=== PATIENT | female | born 1995 | race Caucasian/White ===

== ENCOUNTER 2018-05-01 17:32 | Inpatient (IN) | payer OTHER ==
--- NOTE | 2018-05-01 18:41 | ED ---
Psychiatric Complaint - HPI Summary HPI Summary: 22 y/o female BIBA to the ED c/o depression. Pt states that she's "not succeeding at anything". She "feels like things are messed up". She c/o that "everything hurts". She is having a hard time function. Pt has had prior psychosis episodes. Pt is a student at [employer]. Pt cared for at [facility] prior to being sent to the ED. Started Cymbalta 2 weeks ago. - History Of Current Complaint Chief Complaint: EDPsychosocial Hx Obtained From: Patient Onset/Duration: Still Present Timing: Constant Character: Depressed, Anxious Aggravating Factor(s): Nothing Alleviating Factor(s): Nothing Associated Signs And Symptoms: Negative: Hallucinating Related History: Positive For: Prior Psychiatric Issues - Allergies/Home Medications Home Medications: Home Medications Escitalopram (NF) [Lexapro 10 mg (NF)] 10 mg PO DAILY 05/01/18 [History Confirmed 05/01/18] PMH/Surg Hx/FS Hx/Imm Hx Previously Healthy: No Cardiovascular History: Denies: Hx Congestive Heart Failure Respiratory History: Denies: Hx Chronic Obstructive Pulmonary Disease (COPD) - Immunization History Immunizations Up to Date: Unable to Obtain/Confirm Infectious Disease History: Unable to Obtain/Confirm Infectious Disease History: Denies: Traveled Outside the [place] in Last 30 Days - Family History Known Family History: Positive: Unknown - Social History Occupation: Student Alcohol Use: Occasionally Alcohol Amount: Per mother pt drinks wine at night Substance Use Type: Reports: None Smoking Status (MU): Unknown if Ever Smoked Review of Systems Constitutional: Negative Eyes: Negative ENT: Negative Cardiovascular: Negative Respiratory: Negative Gastrointestinal: Negative Genitourinary: Negative Musculoskeletal: Negative Skin: Negative Neurological: Negative Positive: Depressed All Other Systems Reviewed And Are Negative: No Physical Exam - Summary Physical Exam Summary: Appearance: Alert, conversive, nontoxic appearing Skin: Warm, dry, no mottling, no rashes, no contusions HEENT: EOMI, PERRL, moist mucous membranes Neck: No masses on the neck, supple Respiratory: Clear to auscultation, breath sounds present, no rales, no rhonchi , no wheezes Cardiovascular: RRR, pulses are symmetrical in both lower and upper extremities Abdomen: Soft, non-tender Bowel Sounds: Present Musculoskeletal: No CVA tenderness, no obvious deformity, moving all extremities in a grossly normal manner Neurological: A&Ox3, CN II-XII Intact, moving all extremities symmetrically Psychiatric: Completely unengaged, poor eye contact. The patient keeps repeating herself, not giving any history. Poor insight, poor judgment. Triage Information Reviewed: Yes Vital Signs On Initial Exam: Initial Vitals Temp Pulse Resp BP Pulse Ox 98 F 85 18 121/88 100 05/01/18 17:48 05/01/18 17:48 05/01/18 17:48 05/01/18 17:48 05/01/18 17:48 Vital Signs Reviewed: Yes Diagnostics - Vital Signs Vital Signs Temp Pulse Resp BP Pulse Ox 05/01/18 17:48 98 F 85 18 121/88 100 - Laboratory Result Diagrams: 05/01/18 20:35 05/01/18 20:35 Lab Statement: Any lab studies that have been ordered have been reviewed, and results considered in the medical decision making process. - Additional Comments Diagnostic Additional Comments: EKG - SR @ 74 BPM. Prolonged QRSD. Normal QTc. Inverted T waves in V1, V2. Nonspecific ST-Twave changes. Course/Dx - Course Assessment/Plan: Spoke with psych. I recommended the pt be evaluated. EKG - SR @ 74 BPM. Prolonged QRSD. Normal QTc. Inverted T waves in V1, V2. Nonspecific ST -Twave changes. Pt will be signed out to Dr. Fish pending MHE and dispo. - Differential Dx/Clinical Impression Provider Diagnosis: Depression, Mood disorder Discharge - Sign-Out/Discharge Documenting (check all that apply): Sign-Out Patient Signing out patient TO: Suleman Fish Receiving patient FROM: Yessi Gibbs - Discharge Plan Condition: Guarded Disposition: PSYCHIATRIC FACILITY[place] [place] - Billing Disposition and Condition Condition: GUARDED Disposition: Psychiatric Facility [facility] - Attestation Statements Document Initiated by Scribe: Yes Documenting Scribe: Roberto Diehl Provider For Whom Scribe is Documenting (Include Credential): Yessi Gibbs MD Scribe Attestation: Roberto Montana, scribed for Yessi Gibbs MD on 05/03/18 at 1137. Scribe Documentation Reviewed: Yes Provider Attestation: The documentation as recorded by the Roberto cheney accurately reflects the service I personally performed and the decisions made by me, Yessi Gibbs MD
[2018-05-01 20:41] LABS: ABS Basophils 0 10^3/ul (0-0.2); ABS Eosinophils 0 10^3/ul (0-0.6); ABS Lymphocytes 1.3 10^3/ul (1.0-4.8); ABS Monocytes 0.7 10^3/ul (0-0.8); ABS Neutrophils 3.5 10^3/ul (1.5-7.7); ABS Nucleated RBC 0 10^3/ul; Eosinophil % 0.1 % (0-6); Hematocrit 39 % (35-47); Hemoglobin 13.2 g/dl (12.0-16.0); Lymphocyte % 23.8 % (25-47); Mean Corpuscular HGB Conc 34 g/dl (31-36); Mean Corpuscular Hemoglobin 32 pg (27-31); Mean Corpuscular Volume 92 fL (80-97); Mean Platelet Volume 7.7 um3 (7.4-10.4); Nucleated Red Blood Cells % 0.1; Platelet Count 249 10^3/ul (150-450); Red Blood Count 4.19 10^6/ul (4.00-5.40); Red Cell Distribution Width 13 % (10.5-15); White Blood Count 5.6 10^3/ul (3.5-10.8)
[2018-05-01 20:57] LABS: EGFR Non-African American 163.3 (>60)
[2018-05-01 21:36] LABS: Urine Appearance Clear; Urine Blood Negative (Negative); Urine Color Yellow; Urine Ketones 1+ (Negative); Urine Protein Negative (Negative); Urine Red Blood Cell 1+(3-5/hpf) (Absent); Urine Specific Gravity 1.005 (1.010-1.030); Urine Urobilinogen Negative (Negative); Urine White Blood Cell Trace(0-5/hpf) (Absent)
[2018-05-02] MEDS ORDERED: Al Hydrox/Mg Hydrox/Simet LIQ* 30 ML UDC PO PRN (00:17)
--- NOTE | 2018-05-02 00:22 | ED ---
Progress - Consult/PCP Time Called: 22:30 Course/Dx - Diagnoses Provider Diagnoses: Depression, Mood disorder Discharge - Sign-Out/Discharge Documenting (check all that apply): Patient Departure Signing out patient TO: Suleman Fish Receiving patient FROM: Yessi Gibbs - Discharge Plan Condition: Guarded Disposition: PSYCHIATRIC FACILITY[place] [place] Referrals: No Primary Care Phys,NOPCP [Primary Care Provider] - - Billing Disposition and Condition Condition: GUARDED Disposition: Psychiatric Facility [facility] [place]
[2018-05-02] MEDS ORDERED: LORazepam TAB(*) 1 MG PO ONE (01:00)
[2018-05-02] MEDS: Vitamin THERAPEUTIC TAB PO SCH (10:02)
--- NOTE | 2018-05-02 12:56 | HP ---
H&P (Free Text) History and Physical: JUSTIFICATION FOR ADMISSION: Patient presented to emergency room with disorganized thinking and behavior, anxious, unable to care for self. He requires inpatient psychiatric admission in order to provide treatment and stabilization as she is a danger to herself. CHIEF COMPLAINT: "I have messed up things for others HISTORY OF THE PRESENT ILLNESS: Patient is a 22 y/o female, single, living in [place], studying at [employer], with history of unspecified Mood symptoms and self-injurious behavior. Patient was admitted to inpatient unit for worsening of her disorganized behavior and thinking impairing her level of functioning. Patient compliance is unknown with her Lexapro. Patient reportedly has been having similar symptoms started over this summer. Patient first episode was in [place] when she was working at [employer]. Family intervened and brought patient home and symptoms resolved. Patient was at her baseline for about 2 and half week and then had another relapse in symptoms. Patient after second episode saw a Psychiatrist Dr. Donnie Dennis in [place], [place] and was started on Lexapro 10 mg PO Q daily. Patient was doing fine and reportedly moved back to [place] to start at [employer]. Patient reportedly had no manic symptoms. Patient reports no delusion of paranoia or persecution but likely delusion of guilt. Patient denied any suicidal or homicidal ideation on the unit. Patient continued to exhibit behavior that is disorganized, anxious and is unable to care for self. PAST PSYCHIATRIC HISTORY: Patient has history of no history of inpatient psychiatric hospitalization. Patient has history of no outpatient psychiatric treatment until recently as in [facility]. Patients medications are Lexapro 10mg once a day. Patient has history of self-injurious (cutting) behavior during high school. Patient has history of no homicidal threats, no intent or attempt. Patient has history of no aggressive and agitated behavior when decompensates. No access to firearm reported. SUBSTANCE ABUSE HISTORY: Patient uses of alcohol and substance abuse are unclear. Urine toxicology was negative for routine screening. Patients mother states that she used alcohol at a wedding this summer but unsure that coincided with her symptoms. Patient also once presented [place] [facility] after alcohol intoxication in 2016. When asked about other substances patient was unable to provide much information but did report using marijuana once during last week unable to provide details on amount , frequency, day and date. Patient has been in no inpatient and outpatient treatment for drugs. PAST MEDICAL HISTORY: No active medical problems ALLERGIES: NKA FAMILY PSYCHIATRIC HISTORY: Patient denied any history psychiatric illness, suicide or substance abuse in her family. FAMILY/PSYCHOSOCIAL HISTORY: Patient currently lives in [place] and is enrolled at [employer] for last 2 years. Patient is single. Patients is originally from [facility]. Patient has 3 older sibling sisters. Patient was raised by her parents. As per mother patient might be struggling her sexuality but patient was unable to cooperate with details. Patient support system includes family. REVIEW OF SYSTEMS: Patients review of symptoms was negative for any physical complaint. Patient vital signs are stable. Patients ED physical exam was reviewed which is grossly normal with no active medical problem. Physical Exam Summary: Appearance: Alert, conversive, nontoxic appearing Skin: Warm, dry, no mottling, no rashes, no contusions HEENT: EOMI, PERRL, moist mucous membranes Neck: No masses on the neck, supple Respiratory: Clear to auscultation, breath sounds present, no rales, no rhonchi , no wheezes Cardiovascular: RRR, pulses are symmetrical in both lower and upper extremities Abdomen: Soft, non-tender Bowel Sounds: Present Musculoskeletal: No CVA tenderness, no obvious deformity, moving all extremities in a grossly normal manner Neurological: A&Ox3, CN II-XII Intact, moving all extremities symmetrically MENTAL STATUS EXAMINATION: Appearance: dressed in hospital gown, making intermittent eye contact, poor historian, appear internally preoccupied in her thoughts and is in distress, confused, fair hygeine Behavior: psychotically related Gait: normal Abnormal motor activity: normal Speech: poverty in speech, underproductive, perseverance Mood: I am messed up Affect: blunt, anxious Thought process: goal directed to disorganized Thought Content: Suicidal/Homicidal ideation: denied Delusions: of guilt Obsessions: none Phobia: none Perceptual disturbance: appear to be internally preoccupied, but denies Attention: limited Orientation: intact with place and person Concentration: impaired Memory: poor Insight: limited Judgment: poor Impulse control: grossly intact IMPRESSION: Patient with history of self-injurious behavior in high school and unspecified mood symptoms starting this summer. Patient currently admitted due to worsening of disorganized behavior and thinking causing inability to think and function. Patient has history of alcohol and cannabis use but unclear about details. Patient is a danger to self if discharged hence will be stabilized on inpatient unit with medication adjustments and therapy. 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 Patient is full code. Patient is on involuntary admission status Integrate patient into the milieu Individual and group psychotherapy MMPI and psychological consult with Dr. Jose. Social work consult for therapy and discharge planning Will hold family meeting with family to increase Data base. Patient was educated about her medications, risk, benefits and side effects and was started on: Abilify 5 mg PO QAM to help with psychosis. Klonopin 0.5 mg PO BID to help with anxiety and racing thoughts. Patient also on Hydroxyzine 50 mg PO Q6HRS PRN anxiety/agitation Will continue to monitor and f/u for improvement and side effects. Emilee Orozco MD Attending Psychiatrist
[2018-05-02] MEDS: clonazePAM TAB(*) 0.5 MG PO SCH ×2 (13:02→20:32)
[2018-05-02] MEDS: ARIPiprazole TAB* 5 MG PO SCH (13:02)
[2018-05-03] MEDS: Vitamin THERAPEUTIC TAB PO SCH (09:12)
[2018-05-03] MEDS: ARIPiprazole TAB* 5 MG PO SCH (09:12)
[2018-05-03] MEDS: clonazePAM TAB(*) 0.5 MG PO SCH ×2 (09:12→21:02)
--- NOTE | 2018-05-03 11:41 | PN ---
[facility]: Group Therapy Note - Service Type Service Type: 14665 Group Psychotherapy - Cognitive Behavioral Group Therapy ( CBT):Patient attended CBT programming this morning and presented with flat affect that did not vary with discussion. Although responsive to direct prompts to respond to questions, patient did not engage in spontaneous conversation.
--- NOTE | 2018-05-03 11:52 | PN ---
Subjective - Subjective Date of Service: 05/03/18 Service Type: 91268 Hosp care 15 min low complexity Subjective: Patient was seen by self, discussed with treatment team, chart was reviewed. Patient has been compliant with her medications with support. Patient's mother has been very involved and supportive during this hospitalization. Patient reported no side effects from medications. Patient reports delusion of guilt and racing worries, impairing her concentration, less disorganized in her thinking and behavior. Patient sleeping has been better and is also resting during the day. Patient eating has been fair. Patient has been more cooperative with staff and yesterday was paranoid about taking medications but was supported by staff and her mother. Patient behavior has been in control and taking care of her hygiene better. Patient mood was less anxious compared to yesterday. Patient has been reporting no suicidal or homicidal ideation. Patient has intermittent perceptual disturbance of auditory hallucination that she reported to staff. Objective - Appearance Appearance: Thin Framed Dysmorphic Features: No Hygiene: Normal Grooming: Fairly Well Kept - Behavior Psychomotor Activities: Normal Exhibits Abnormal Movement: No - Attitude and Relatedness Attitude and Relatedness: Psychotically Related Eye Contact: Poor - Speech Quality: Unpressured Latencies: Long Quantity: Terse - Mood Patient's Decription of Mood: "i dont know" - Affect Observed Affect: Tense Affect Consistent with: Dysphoria - Thought Process Patient's Thought Process: Disorganized Thought Content: No Passive Wish, No Suicidal Planning, No Homicidal Ideation, No Paranoid Ideation - delusion of guilt - Sensorium Experiencing Hallucinations: No, Sensorium is Clear Type of Hallucinations: Visual: No, Auditory: No - at time of evauation, Command : No - Level of Consciousness Level of Consciousness: Alert Orientation: Yes Intact, Yes Orientated to Time, Yes Orientated to Place, Yes Orientated to Person - Impulse Control Impulse Control: Intact - Insight and Judgement Insight and Judgement: Poor - Medication Management Medication Management Adherence: Yes - with support Assessment - Assessment Merits Inpatient Hospitalization: For Immediate Safety, For Stabilization, For Discharge Planning Inpatient DSM-V Dx: F29 Clinical Impression: Patient with history of self-injurious behavior in high school and unspecified mood symptoms starting this summer. Patient currently admitted due to worsening of disorganized behavior and thinking causing inability to think and function. Patient has history of alcohol and cannabis use but unclear about details. Patient is a danger to self if discharged hence will be stabilized on inpatient unit with medication adjustments and therapy. Plan - Plan Treatment Plan: Name: DENIS FOX Birthdate: 1995 [id number] - Patient continues to be hospitalized due to recent disorganized behavior and thinking and unable to care for self. - Patient's medications were adjusted after informed consent with increment in Abilify to 10 mg PO QAM and continue with Klonopin 0.5 mg BID. - Patient will be monitored for improvement and side effects. Risk and benefits were discussed. - Patient was encouraged to continue his participation in the milieu, group and individual therapy. Medications: Current Medications Acetaminophen (Tylenol Tab*) 650 mg PO Q4H PRN PRN Reason: PAIN or TEMP > 101 F Al Hydrox/Mg Hydrox/Simethicone (Maalox Plus*) 30 ml PO Q4H PRN PRN Reason: INDIGESTION Aripiprazole (Abilify Tab*) 5 mg PO DAILY [facility] Last Admin: 05/03/18 09:12 Dose: 5 mg Clonazepam (Klonopin Tab(*)) 0.5 mg PO BID [facility] Last Admin: 05/03/18 09:12 Dose: 0.5 mg Hydroxyzine HCl (Atarax Tab*) 50 mg PO Q6H PRN PRN Reason: ANXIETY Multivitamins (Theragran Tab*) 1 tab PO DAILY [facility] Last Admin: 05/03/18 09:12 Dose: 1 tab
[2018-05-04] MEDS: clonazePAM TAB(*) 0.5 MG PO SCH ×2 (08:07→20:33)
[2018-05-04] MEDS: Vitamin THERAPEUTIC TAB PO SCH (08:07)
[2018-05-04] MEDS ORDERED: ARIPiprazole TAB* 5 MG PO SCH (09:00)
[2018-05-04] MEDS: Acetaminophen TAB* 325 MG PO PRN (11:01)
--- NOTE | 2018-05-04 12:20 | PN ---
Subjective - Subjective Date of Service: 05/04/18 Service Type: 00832 Hosp care 25 min moderate complexity Subjective: Patient was seen by self, discussed with treatment team, chart was reviewed. Patient has been compliant with her medications with support. Patient's mother has been very involved and supportive during this hospitalization and met her today for treatment and discharge planning as per patient's consent. Patient reported no side effects from medications other than feeling tired and sleepy during the day. Patient has some improvement in delusion of guilt and racing worries, some improvement in her concentration, less disorganized in her thinking and behavior. Patient sleeping has been ok at night and is also resting during the day. Patient eating has been fair. Patient has been more cooperative and following instructions with staff. Patient behavior has been in control and taking care of her hygiene well. Patient reported start of her menstrual period and requested supplies to nursing staff. Patient mood was less anxious and has been reporting no suicidal or homicidal ideation. Patient has intermittent period internal stimuli that she responds to. Objective - Appearance Appearance: Thin Framed Dysmorphic Features: No Hygiene: Normal Grooming: Fairly Well Kept - Behavior Psychomotor Activities: Abnormal-Decreased Exhibits Abnormal Movement: No - Attitude and Relatedness Attitude and Relatedness: Withdrawn Eye Contact: Fair - Speech Quality: Unpressured Latencies: Long Quantity: Terse - Mood Patient's Decription of Mood: "I am tired" - Affect Observed Affect: Tense Affect Consistent with: Dysphoria - Thought Process Patient's Thought Process: Goal Directed, Disorganized - less Thought Content: No Passive Wish, No Suicidal Planning, No Homicidal Ideation, No Paranoid Ideation - Sensorium Experiencing Hallucinations: No, Sensorium is Clear Type of Hallucinations: Visual: No, Auditory: Yes, Command: No - Level of Consciousness Level of Consciousness: Alert Orientation: Yes Intact, Yes Orientated to Time, Yes Orientated to Place, Yes Orientated to Person - Impulse Control Impulse Control: Intact - Group Participation Particating in Group Activities: Yes - Medication Management Medication Management Adherence: Yes Assessment - Assessment Merits Inpatient Hospitalization: For Immediate Safety, For Stabilization, For Discharge Planning Inpatient DSM-V Dx: F29 Clinical Impression: Patient with history of self-injurious behavior in high school and unspecified mood symptoms starting this summer. Patient currently admitted due to worsening of disorganized behavior and thinking causing inability to think and function. Patient has history of alcohol and cannabis use but unclear about details. Patient is a danger to self if discharged hence will be stabilized on inpatient unit with medication adjustments and therapy. Plan - Plan Treatment Plan: Name: DENIS FOX Birthdate: 1995 [id number] - Patient continues to be hospitalized due to recent disorganized behavior and thinking and unable to care for self. - Patient's medications were adjusted after informed consent with change of Abilify to 10 mg PO QHS and reduce Klonopin to 0.5 mg QHS. - Patient will be monitored for improvement and side effects. Risk and benefits were discussed. - Patient was encouraged to continue his participation in the milieu, group and individual therapy. Medications: Current Medications Acetaminophen (Tylenol Tab*) 650 mg PO Q4H PRN PRN Reason: PAIN or TEMP > 101 F Last Admin: 05/04/18 11:01 Dose: 650 mg Al Hydrox/Mg Hydrox/Simethicone (Maalox Plus*) 30 ml PO Q4H PRN PRN Reason: INDIGESTION Aripiprazole (Abilify Tab*) 10 mg PO DAILY [facility] Last Admin: 05/04/18 08:06 Dose: 10 mg Clonazepam (Klonopin Tab(*)) 0.5 mg PO BID [facility] Last Admin: 05/04/18 08:07 Dose: 0.5 mg Hydroxyzine HCl (Atarax Tab*) 50 mg PO Q6H PRN PRN Reason: ANXIETY Multivitamins (Theragran Tab*) 1 tab PO DAILY [facility] Last Admin: 05/04/18 08:07 Dose: 1 tab
--- NOTE | 2018-05-04 13:11 | PN ---
MHU: Group Therapy Note - Service Type Service Type: [id number] Group Psychotherapy - Cognitive Behavioral Group Therapy ( CBT):Patient attended CBT programming this morning and presented with flat affect that did not vary with discussion. Although responsive to direct prompts to respond to questions, patient did not engage in spontaneous conversation.
[2018-05-04] MEDS ORDERED: Fluconazole 100 MG TAB* TAB PO ONE (15:06)
[2018-05-04] MEDS: ARIPiprazole TAB* 5 MG PO SCH (20:33)
[2018-05-05] MEDS: Vitamin THERAPEUTIC TAB PO SCH (09:00)
[2018-05-05] MEDS: hydrOXYzine HCL TAB* 50 MG PO PRN (10:44)
[2018-05-05] MEDS ORDERED: Calcium Carbonate CHEW TAB* 500 MG (TUMS) PO PRN (13:21)
--- NOTE | 2018-05-05 14:01 | PN ---
Subjective - Subjective Date of Service: 05/05/18 Service Type: [id number] Hosp care 15 min low complexity Subjective: Denis is seen in weekend coverage for Dr. Orozco. She remains a little "scattered" but she's feeling better and no longer displaying catatonic behaviors. On exam she has mild speech latency and blunting of affect. Her sister and mother are present and feel encouraged by her progress, although they do not feel she is back to baseline. Denis complains of mild indigestion and requests Tums. She denies SI or HI. Objective - Appearance Appearance: Thin Framed Dysmorphic Features: No Hygiene: Normal Grooming: Well Kept - Behavior Psychomotor Activities: Abnormal-Decreased Exhibits Abnormal Movement: No - Attitude and Relatedness Attitude and Relatedness: Guarded Eye Contact: Fair - Speech Quality: Unpressured Latencies: Long Quantity: Terse - Mood Patient's Decription of Mood: "Okay" - Affect Observed Affect: Unvariable Affect Consistent with: Euthymia - Thought Process Patient's Thought Process: Impoverished Thought Content: Yes Paranoid Ideation, No Passive Wish, No Suicidal Planning, No Homicidal Ideation - Sensorium Experiencing Hallucinations: No, Sensorium is Clear Type of Hallucinations: Visual: No, Auditory: No, Command: No - Level of Consciousness Level of Consciousness: Alert Orientation: Yes Intact, Yes Orientated to Time, Yes Orientated to Place, Yes Orientated to Person - Impulse Control Impulse Control: Poor - Insight and Judgement Insight and Judgement: Impaired - Group Participation Particating in Group Activities: Yes - Medication Management Medication Management Adherence: Yes Assessment - Assessment Merits Inpatient Hospitalization: For Immediate Safety, For Stabilization Inpatient DSM-V Dx: F29 Clinical Impression: 22 y.o. single, white [employer] student with a recent history of episodic catatonic behavior arrives with evidence of overt psychosis and inability to care for herself or receive treatment in a less restrictive setting Plan - Plan Treatment Plan: Name: DENIS FOX Birthdate: 1995 [id number] The patient has been started on trials of aripiprazole and clonazepam. She is tolerating these well and appears to be making meaningful progress. She remains symptomatic, however, and would benefit from further inpatient-level treatment to consolidate gains and ensure safety. Continued Medication Management: Start Medication Medications: Current Medications Acetaminophen (Tylenol Tab*) 650 mg PO Q4H PRN PRN Reason: PAIN or TEMP > 101 F Last Admin: 05/04/18 11:01 Dose: 650 mg Al Hydrox/Mg Hydrox/Simethicone (Maalox Plus*) 30 ml PO Q4H PRN PRN Reason: INDIGESTION Aripiprazole (Abilify Tab*) 10 mg PO BEDTIME [facility] Last Admin: 05/04/18 20:33 Dose: 10 mg Calcium Carbonate (Tums*) 500 mg PO Q4H PRN PRN Reason: INDIGESTION Clonazepam (Klonopin Tab(*)) 0.5 mg PO BEDTIME [facility] Last Admin: 05/04/18 20:33 Dose: 0.5 mg Hydroxyzine HCl (Atarax Tab*) 50 mg PO Q6H PRN PRN Reason: ANXIETY Last Admin: 05/05/18 10:44 Dose: 50 mg Multivitamins (Theragran Tab*) 1 tab PO DAILY [facility] Last Admin: 05/05/18 09:00 Dose: 1 tab - Discharge Plan Discharge Plan: Inpatient Hospitalization Lab Results - Lab Results Lab Results: 05/03/18 05/03/18 08:10 08:10 Hemoglobin A1c 4.6 Triglycerides 72 Cholesterol 153 LDL Cholesterol 77 HDL Cholesterol 61.7
[2018-05-05] MEDS: clonazePAM TAB(*) 0.5 MG PO SCH (20:18)
[2018-05-05] MEDS: ARIPiprazole TAB* 5 MG PO SCH (20:19)
[2018-05-06] MEDS: Vitamin THERAPEUTIC TAB PO SCH (09:02)
[2018-05-06] MEDS: Acetaminophen TAB* 325 MG PO PRN (13:52)
[2018-05-06] MEDS: hydrOXYzine HCL TAB* 50 MG PO PRN (13:52)
[2018-05-06] MEDS ORDERED: WASH INTRANASAL SCH (15:00)
[2018-05-06] MEDS: clonazePAM TAB(*) 0.5 MG PO SCH ×2 (15:52→20:24)
[2018-05-06] MEDS: ARIPiprazole TAB* 5 MG PO SCH (20:23)
[2018-05-07] MEDS: clonazePAM TAB(*) 0.5 MG PO SCH (09:02)
[2018-05-07] MEDS: Vitamin THERAPEUTIC TAB PO SCH (09:03)
--- NOTE | 2018-05-07 12:37 | PN ---
Subjective - Subjective Date of Service: 05/07/18 Service Type: 00521 Hosp care 15 min low complexity Subjective: Patient was seen by self, discussed with treatment team, chart was reviewed. Patient has been compliant with her medications with support. Patient's mother has been very involved and supportive during this hospitalization and met her today also for treatment and discharge planning as per patient's consent. Patient reportedly having some feelings of restlessness and anxiety with increase in heart rate. Patient report being able to organize her thought better , less disorganized in her behavior but continues to be resistant to express her struggles, emotions and thinking freely. Patient reports that she has was feeling depressed and anxious couple of days before this episode. But also report that she went to see a psychiatrist 2 weeks before this hospitalization that prescribed Lexapro to help with depression and anxiety. Patient keeping her sexual orientation of being bisexual to her self during high school years and did explore it during college years. Patient is currently not in any relationship. Patient did report it to her mother and find her to be supportive. Patient Patient feeling tired and sleepy during the day. Patient has some improvement in delusion of guilt and racing worries, some improvement in her concentration, less disorganized in her thinking and behavior. Patient reported no perceptual disturbance at this time but was confused if she had experienced any of those symptoms during this hospitalization as she was unable to remember. Patient sleeping has been ok at night. Patient eating has been fair. Patient has been more cooperative and following instructions with staff and went out on a staff pass without difficulty. Patient behavior has been in control and taking care of her hygiene well. Patient reported having hormonal implant for contraception and have irregular brief periods but was able to feel that her symptoms worsen before occurrence of period. Patient reported no suicidal or homicidal ideation. Patient did not appear to be responding to internal stimuli. Objective - Appearance Appearance: Thin Framed Dysmorphic Features: No Hygiene: Normal Grooming: Fairly Well Kept - Behavior Psychomotor Activities: Abnormal-Decreased Exhibits Abnormal Movement: No - Attitude and Relatedness Attitude and Relatedness: Superficially Cooperative Eye Contact: Fair - Speech Quality: Unpressured Latencies: Long Quantity: Terse - Mood Patient's Decription of Mood: "Anxious" - Affect Observed Affect: Tense Affect Consistent with: Dysphoria - Thought Process Patient's Thought Process: Goal Directed Thought Content: Yes Paranoid Ideation, No Passive Wish, No Suicidal Planning, No Homicidal Ideation - Sensorium Experiencing Hallucinations: No, Sensorium is Clear Type of Hallucinations: Visual: No, Auditory: No, Command: No - Level of Consciousness Level of Consciousness: Alert Orientation: Yes Intact, Yes Orientated to Time, Yes Orientated to Place, Yes Orientated to Person - Impulse Control Impulse Control: Intact - Insight and Judgement Insight and Judgement: Fair - Group Participation Particating in Group Activities: Yes - Medication Management Medication Management Adherence: Yes Assessment - Assessment Merits Inpatient Hospitalization: For Immediate Safety, For Stabilization, For Discharge Planning Inpatient DSM-V Dx: F29 Clinical Impression: Patient with history of self-injurious behavior in high school and unspecified mood symptoms starting this summer. Patient currently admitted due to worsening of disorganized behavior and thinking causing inability to think and function. Patient has history of alcohol and cannabis use but unclear about details. Patient is a danger to self if discharged hence will be stabilized on inpatient unit with medication adjustments and therapy. Plan - Plan Treatment Plan: Name: DENIS FOX Birthdate: 1995 [id number] - Patient continues to be hospitalized due to recent disorganized behavior and thinking and unable to care for self. - Patient's medications were adjusted due to akathisia and anxiety related symptoms after informed consent with change of Abilify to Zyprexa 5 mg at bedtime and Klonopin was reduced to 0.5 mg QHS. - Patient will be monitored for improvement and side effects. Risk and benefits were discussed. - Patient was encouraged to continue his participation in the milieu, group and individual therapy. Medications: Current Medications Acetaminophen (Tylenol Tab*) 650 mg PO Q4H PRN PRN Reason: PAIN or TEMP > 101 F Last Admin: 05/06/18 13:52 Dose: 650 mg Al Hydrox/Mg Hydrox/Simethicone (Maalox Plus*) 30 ml PO Q4H PRN PRN Reason: INDIGESTION Calcium Carbonate (Tums*) 500 mg PO Q4H PRN PRN Reason: INDIGESTION Clonazepam (Klonopin Tab(*)) 0.5 mg PO BEDTIME DESMOND Hydroxyzine HCl (Atarax Tab*) 50 mg PO Q6H PRN PRN Reason: ANXIETY Last Admin: 05/06/18 13:52 Dose: 50 mg Multivitamins (Theragran Tab*) 1 tab PO DAILY DESMOND Last Admin: 05/07/18 09:03 Dose: 1 tab Olanzapine (Zyprexa Tab*) 5 mg PO BEDTIME DESMOND Thymol/Menthol (Alkalol (Nf)) 1 dose INTRANASAL . DIRECTED DESMOND; Protocol
[2018-05-07] MEDS ORDERED: OLANzapine TAB* 5 MG PO SCH (21:00)
[2018-05-07] MEDS ORDERED: clonazePAM TAB(*) 0.5 MG PO SCH (21:00)
[2018-05-08 08:27] VITALS: BP 119/67
[2018-05-08] MEDS: Vitamin THERAPEUTIC TAB PO SCH (08:32)
--- NOTE | 2018-05-08 13:40 | DS ---
Subjective - Subjective Service Types: 11203 [facility] Day Mgmt complex over 30 min Discharge Date: 05/08/18 Subjective: JUSTIFICATION FOR ADMISSION: Patient presented to emergency room with disorganized thinking and behavior, anxious, unable to care for self. He requires inpatient psychiatric admission in order to provide treatment and stabilization as she is a danger to herself. CHIEF COMPLAINT: "I have messed up things for others HISTORY OF THE PRESENT ILLNESS: Patient is a 22 y/o female, single, living in [place], studying at [employer], with history of unspecified Mood symptoms and self-injurious behavior. Patient was admitted to inpatient unit for worsening of her disorganized behavior and thinking impairing her level of functioning. Patient compliance is unknown with her Lexapro. Patient reportedly has been having similar symptoms started over this summer. Patient first episode was in [place] when she was working at [employer]. Family intervened and brought patient home and symptoms resolved. Patient was at her baseline for about 2 and half week and then had another relapse in symptoms. Patient after second episode saw a Psychiatrist Dr. Donnie Dennis in [place], [place] and was started on Lexapro 10 mg PO Q daily. Patient was doing fine and reportedly moved back to [place] to start at [employer]. Patient reportedly had no manic symptoms. Patient reports no delusion of paranoia or persecution but likely delusion of guilt. Patient denied any suicidal or homicidal ideation on the unit. Patient continued to exhibit behavior that is disorganized, anxious and is unable to care for self. PAST PSYCHIATRIC HISTORY: Patient has history of no history of inpatient psychiatric hospitalization. Patient has history of no outpatient psychiatric treatment until recently as in [facility]. Patients medications are Lexapro 10mg once a day. Patient has history of self-injurious (cutting) behavior during high school. Patient has history of no homicidal threats, no intent or attempt. Patient has history of no aggressive and agitated behavior when decompensates. No access to firearm reported. SUBSTANCE ABUSE HISTORY: Patient uses of alcohol and substance abuse are unclear. Urine toxicology was negative for routine screening. Patients mother states that she used alcohol at a wedding this summer but unsure that coincided with her symptoms. Patient also once presented to [facility] ED after alcohol intoxication in 2016. When asked about other substances patient was unable to provide much information but did report using marijuana once during last week unable to provide details on amount , frequency, day and date. Patient has been in no inpatient and outpatient treatment for drugs. PAST MEDICAL HISTORY: No active medical problems ALLERGIES: NKA FAMILY PSYCHIATRIC HISTORY: Patient's maternal aunt has history of Bipolar Disorder, maternal cousin has severe depression. Patient's mother has depression and is currently taking Lexapro. FAMILY/PSYCHOSOCIAL HISTORY: Patient currently lives in [place] and is enrolled at [employer] for last 2 years. Patient is single. Patients is originally from [facility]. Patient has 3 older sibling sisters. Patient was raised by her parents. As per mother patient might be struggling her sexuality but patient was unable to cooperate with details. Patient support system includes family. REVIEW OF SYSTEMS: Patients review of symptoms was negative for any physical complaint. Patient vital signs are stable. Patients ED physical exam was reviewed which is grossly normal with no active medical problem. Physical Exam Summary: Appearance: Alert, conversive, nontoxic appearing Skin: Warm, dry, no mottling, no rashes, no contusions HEENT: EOMI, PERRL, moist mucous membranes Neck: No masses on the neck, supple Respiratory: Clear to auscultation, breath sounds present, no rales, no rhonchi , no wheezes Cardiovascular: RRR, pulses are symmetrical in both lower and upper extremities Abdomen: Soft, non-tender Bowel Sounds: Present Musculoskeletal: No CVA tenderness, no obvious deformity, moving all extremities in a grossly normal manner Neurological: A&Ox3, CN II-XII Intact, moving all extremities symmetrically MENTAL STATUS EXAMINATION ON ADMISSION: Appearance: dressed in hospital gown, making intermittent eye contact, poor historian, appear internally preoccupied in her thoughts and is in distress, confused, fair hygeine Behavior: psychotically related Gait: normal Abnormal motor activity: normal Speech: poverty in speech, underproductive, perseverance Mood: I am messed up Affect: blunt, anxious Thought process: goal directed to disorganized Thought Content: Suicidal/Homicidal ideation: denied Delusions: of guilt Obsessions: none Phobia: none Perceptual disturbance: appear to be internally preoccupied, but denies Attention: limited Orientation: intact with place and person Concentration: impaired Memory: poor Insight: limited Judgment: poor Impulse control: grossly intact DIAGNOSES ON ADMISSION: Psychotic Disorder unspecified Objective - Appearance Appearance: Healthy Appearing Dysmorphic Features: No Hygiene: Normal Grooming: Fairly Well Kept - Behavior Psychomotor Activities: Abnormal-Decreased - but improved Exhibits Abnormal Movement: No - Attitude and Relatedness Attitude and Relatedness: Cooperative Eye Contact: Fair - Speech Quality: Unpressured Latencies: Normal Quantity: Terse - Mood Patient's Decription of Mood: "Fine" - Affect Observed Affect: Fair - Blunt Affect Consistent with: Euthymia - mild anxiety - Thought Process Patient's Thought Process: Goal Directed Thought Content: No Passive Wish, No Suicidal Planning, No Homicidal Ideation, No Paranoid Ideation - Sensorium Experiencing Hallucinations: No, Sensorium is Clear Type of Hallucinations: Visual: No, Auditory: No, Command: No - Level of Consciousness Level of Consciousness: Alert Orientation: Yes Intact, Yes Orientated to Time, Yes Orientated to Place, Yes Orientated to Person - Impulse Control Impulse Control: Intact - Insight and Judgement Insight and Judgement: Fair - Group Participation Particating in Group Activities: Yes - Medication Management Medication Management Adherence: Yes Treatment Course & Assessment Clinical Course & Impression: Patient is 22 y/o female with history of self-injurious behavior in high school and unspecified mood symptoms starting this summer. Patient was started on Lexapro 2 weeks before hospitalization for depression. Patient was currently admitted due to worsening of disorganized behavior and thinking causing inability to think and function. Patient has history of alcohol and cannabis use but unclear about details. Patient was unable to care for self if discharged hence was stabilized on inpatient unit with medication adjustments and therapy. Patient was admitted to [facility] on Q 15 min observation. Patient was on involuntary admission status. Patient was integrated into the milieu and therapy. Patient was educated about her medications, risk, benefits and side effects and was started on Abilify 5 mg PO QAM to help with psychosis. Klonopin 0.5 mg PO BID to help with anxiety and racing thoughts. Patient was also on Hydroxyzine 50 mg PO Q6HRS PRN anxiety/agitation. Patient was monitored and followed up for improvement and side effects. Patient was compliant with her medications with support. Patient's mother was very involved and supportive during this hospitalization. Patient reported delusion of guilt and racing worries, impairing her concentration, was less disorganized in her thinking and behavior with medications. Patient sleeping was better and was also resting during the day. Patient eating was fair. Patient was responding to treatment slowly and later was more cooperative with staff and less paranoid about taking medications and supported by staff and her mother. Patient behavior was in control and was taking care of her hygiene better. Patient mood was less anxious compared to her admission. Patient was reporting no suicidal or homicidal ideation. Patient had intermittent perceptual disturbance of auditory hallucination that she reported to staff. Patient's medications were adjusted after informed consent with increment in Abilify to 10 mg PO QAM and continued with Klonopin 0.5 mg BID. Patient reported feeling tired and sleepy during the day. Patient had some improvement in delusion of guilt and racing worries, some improvement in her concentration, less disorganized in her thinking and behavior. Patient reported start of her menstrual period and requested supplies. Patient mood was less anxious and had intermittent period internal stimuli that she responded to. Patient's medications were adjusted with Abilify at 10 mg PO QHS and reduced Klonopin to 0.5 mg QHS. Patient had akathisia like symptoms with increased heart rate in 130's and her Klonopin was increased back to Klonopin 0.5 mg BID. Patient reportedly had some feelings of restlessness and anxiety with increase in heart rate with normal B.P. Patient reported being able to organize her thought better, less disorganized in her behavior but continued to be resistant to express her struggles, emotions and thinking freely. Patient reports that she was feeling depressed and anxious couple of days before this episode. Patient also shared that she kept her sexual orientation of being bisexual to her self during high school years but did explore it during college years but has not be open about it to others. Patient's medications were adjusted due to akathisia and anxiety related symptoms from Abilify to Zyprexa 5 mg at bedtime and Klonopin was reduced to 0.5 mg QHS. Patient tolerated medication better and reported less akahtisia and anxiety, heart rate some what improved and was in 110's. Patient was much better, taking care of her self, more organized in her thought and behavior, no hallucinations, not responding to internal stimuli, still somewhat anxious, denied si/hi. Patient was offered voluntary stay at the hospital for further stabilization but patient and family wanted to be discharged. Patient did not meet criteria for involuntary hospitalization and can be managed with outpatient services. Hence after discussing with team and family, patient was discharged to outpatient care at [facility] while patient stays in [place]. But patient and family are considering medical leave from her education at [employer] and likely will return back to [place] and follow up with her outpatient Psychiatrist and therapist in [place], [place]. Patient was given 2 weeks of prescription sent at [facility] pharmacy. Merits Inpatient Hospitalization: No Clear for Discharge: Adequate Clinical Respons, Acceptable Safety Profile Inpatient DSM-V Dx: F29 Discharge Planning - Discharge Planning Discharge Plan: Outpatient Follow Up Recommendations for Continuing Care: Medication Management, Psychotherapy Medications: Discharge Medications Hydroxyzine HCl (Atarax Tab*) 50 mg PO QHS PRN PRN Reason: ANXIETY Last Admin: 05/06/18 13:52 Dose: 50 mg Olanzapine (Zyprexa Tab*) 5 mg PO BEDTIME DESMOND Last Admin: 05/07/18 20:53 Dose: 5 mg Discharge Planning: Prescriptions provided for discharge [x] Yes [] No Follow up care details as per social work arrangements. Patient response to discharge plan: [x] eager for discharge [] agreeable with discharge plan [] ambivalent about discharge [] disagrees with discharge today
== END 2018-05-08 13:15 | disposition home or self-care (01) | DRG 751 ==
LOC: ED 17:32 → BSU 05-02 00:10
PROVIDERS: ADMIT Psychiatry & Neurology Psychiatry; ATTEND Psychiatry & Neurology Psychiatry
PROC: GZHZZZZ Group Psychotherapy (ICD-10-PCS; principal; 2018-05-03)
DX: F29 Unspecified psychosis not due to a substance or known physiological condition (principal); F41.9 Anxiety disorder, unspecified; F39 Unspecified mood [affective] disorder; F32.9 Major depressive disorder, single episode, unspecified; Z72.89 Other problems related to lifestyle; Z81.8 Family history of other mental and behavioral disorders
CPT/HCPCS: 36415; 80053; 80061; 80307; 81003; 81015; 83036; 83735; 84443; 84702; 85025; 86618; 87086; 90853; 93005; 99222; 99231; 99232; 99238; 99283; A9270-GY